=== PATIENT | male | born 1945 | race Caucasian/White ===

== ENCOUNTER 2017-08-10 10:49 | Emergency (ER) | payer MEDICARE, OTHER ==
--- NOTE | 2017-08-10 11:27 | EDM.PDOC ---
ED HPI GENERAL MEDICAL PROBLEM - General Chief Complaint: Bite:Animal, Insect Stated Complaint: LYMES DISEASE? Time Seen by Provider: 08/10/17 11:15 Source of Information: Reports: Patient History Limitations: Reports: No Limitations - History of Present Illness INITIAL COMMENTS - FREE TEXT/NARRATIVE: Norris is a 71 year old male who presents to the ED today with c/o body aches, subjective fever/chills for the last 3 days. Patient reports that his symptoms are similar to when he had lyme's disease in the past, he has had lives twice, last time being 4 years ago. Patient did notice the tick to his right groin a week ago last , he was able to remove it in its entirety, it was not engorged. Patient has been eating and drinking well. He denies any other complaints today. Onset: Gradual Duration: Day(s): (3) - Related Data Allergies Allergy/AdvReac Type Severity Reaction Status Date / Time No Known Allergies Allergy Verified 08/10/17 11:08 Home Meds: Home Meds Simvastatin [Zocor] 20 mg PO DAILY 08/10/17 [History] Past Medical History - Past Health History Medical/Surgical History: Denies Medical/Surgical History Cardiovascular History: Reports: High Cholesterol Social & Family History - Tobacco Use Smoking Status *Q: Never Smoker - Recreational Drug Use Recreational Drug Use: No ED ROS GENERAL - Review of Systems Review Of Systems: ROS reveals no pertinent complaints other than HPI. ED EXAM, ANIMAL BITE - Physical Exam Exam: See Below Exam Limited By: No Limitations General Appearance: Alert, WD/WN, No Apparent Distress Ears: Normal External Exam Nose: Normal Inspection Throat/Mouth: Normal Inspection, Normal Oropharynx Neck: Normal Inspection, Supple, Non-Tender, Full Range of Motion Respiratory/Chest: No Respiratory Distress, Lungs Clear, Normal Breath Sounds Cardiovascular: Normal Peripheral Pulses, Regular Rate, Rhythm, No Murmur GI/Abdominal: Normal Bowel Sounds, Soft, Non-Tender Extremities: Normal Inspection, Normal Range of Motion Neurological: Alert, Oriented, CN II-XII Intact Psychiatric: Normal Affect, Normal Mood Course - Vital Signs Last Recorded V/S: Last Vital Signs Temp 36.4 C 08/10/17 11:08 Pulse 87 08/10/17 11:08 Resp 14 08/10/17 11:08 BP 117/68 08/10/17 11:08 Pulse Ox 98 08/10/17 11:08 Norris is a 71-year-old male who presents to the emergency Department today with complaints of full body aches, subjective fever and chills. Patient has had Lyme's disease in the past and reports his symptoms feel similar. Patient did pull a tick off of his right groin about a week ago. Patient arrives here hemodynamically stable, he is afebrile. Patient's exam is reassuring and unremarkable. Patient is well-hydrated and nontoxic-appearing. Patient has done well with doxycycline in the past, I will start him on this today for a 21 day course. Probiotics were encouraged to prevent GI upset/diarrhea. Tickborne blood work was obtained and is pending. I would like patient to follow-up with his primary care provider later this week, reasons to return to the emergency department were discussed, patient is agreeable to plan of care and was discharged in stable condition. - Orders/Labs/Meds Orders: Active Orders 24 hr Category Date Time Status BABESIA MICROTI ANTIBODY PANEL Stat Lab 08/10/17 11:23 Ordered E. CHAFFEENSIS-HME (MONOCYTIC) Stat Lab 08/10/17 11:24 Ordered LYME (B. BURGDORFERI) PCR Stat Lab 08/10/17 11:24 Ordered Departure - Departure Time of Disposition: 11:45 Disposition: Home, Self-Care 01 Condition: Good Clinical Impression: Tick-borne disease Tick bite Qualifiers: Encounter type: initial encounter Qualified Code(s): W57.XXXA - Bitten or stung by nonvenomous insect and other nonvenomous arthropods, initial encounter - Discharge Information Instructions: Lyme Disease Referrals: PCP,None [Primary Care Provider] - Forms: ED Department Discharge Additional Instructions: Norris, take the doxycycline as prescribed. I would strongly recommend a probiotic as we discussed, twice daily until you're finished with the doxycycline. The brand I recommend is Culturelle. He can follow-up with primary care in the next week for reevaluation unless you are feeling better. You will be notified of your blood tests if these return positive. If you experience any worsening symptoms please return to the emergency department. - My Orders Last 24 Hours: My Active Orders 08/10/17 11:23 BABESIA MICROTI ANTIBODY PANEL Stat 08/10/17 11:24 E. CHAFFEENSIS-HME (MONOCYTIC) Stat LYME (B. BURGDORFERI) PCR Stat - Assessment/Plan Last 24 Hours: My Active Orders 08/10/17 11:23 BABESIA MICROTI ANTIBODY PANEL Stat 08/10/17 11:24 E. CHAFFEENSIS-HME (MONOCYTIC) Stat LYME (B. BURGDORFERI) PCR Stat
[2017-08-13 14:12] LABS: E. CHAFFEENSIS (HME) IGG TITER Negative (Neg:<1:64); E. CHAFFEENSIS (HME) IGM TITER Negative (Neg:<1:20)
== END 2017-08-10 11:42 | disposition home or self-care (01) ==
LOC: JP.ED 10:49
DX: A93.8 Other specified arthropod-borne viral fevers (principal); S30.861A Insect bite (nonvenomous) of abdominal wall, initial encounter; W57.XXXA Bitten or stung by nonvenomous insect and other nonvenomous arthropods, initial encounter
CPT/HCPCS: 86666; 86666-59; 86753; 87476; 99284

== ENCOUNTER 2021-11-08 09:59 | Emergency (ER) | payer OTHER, MEDICARE ==
[2021-11-08] MEDS ORDERED: Lidocaine 1% with EPINEPHrine 1:100,000 50 ML MDV INJECT ONE (10:36)
[2021-11-08] MEDS ORDERED: Diphtheria,Pertussis(Acell),Tetanus Vaccine 0.5 ML Syringe IM ONE (10:37)
[2021-11-08] MEDS ORDERED: Bacitracin Oint 1 GM U/D Packet TOP ONE (10:37)
== END 2021-11-08 11:54 | disposition home or self-care (01) ==
LOC: JP.ED 09:59
DX: S01.81XA Laceration without foreign body of other part of head, initial encounter (principal); Z23 Encounter for immunization; Z87.891 Personal history of nicotine dependence; W26.8XXA Contact with other sharp object(s), not elsewhere classified, initial encounter
CPT/HCPCS: 12013; 90471; 90715; 99282-25